=== PATIENT | female | born 1995 | race Caucasian/White ===

== ENCOUNTER 2021-01-05 19:07 | Inpatient (IN) | payer OTHER ==
[~2021-01-05] VITALS: Ht 172.7 cm; Wt 78.1 kg
[2021-01-05] MEDS ORDERED: SODIUM CHLORIDE 0.9% 1,000ML IVBOLUS ONE (19:30)
[2021-01-05] MEDS ORDERED: SODIUM CHLORIDE FLUSH 10ML SYR IVF ONE (19:30)
[2021-01-05] MEDS ORDERED: ACETAMINOPHEN 500 MG TABLET PO ONE (19:30)
[2021-01-05 19:36] LABS: BASOPHILS % (AUTO) 0 % (0-1); EOSINOPHILS % (AUTO) 1 % (1-7); LYMPHOCYTES % (AUTO) 8 % (22-44); MEAN CORPUSCULAR HEMOGLOBIN 32.1 pg (27.0-34.8); MEAN CORPUSCULAR HGB CONC 34.7 g/dL (32.4-35.8); MEAN PLATELET VOLUME 6.9 fL (7.4-10.4); MONOCYTES % (AUTO) 6 % (2-9); NEUTROPHILS % (AUTO) 84 % (42-75); PLATELET COUNT 226 x10^3/uL (130-400); RED BLOOD COUNT 5.01 x10^6/uL (3.82-5.3); RED CELL DISTRIBUTION WIDTH 13.8 % (9.6-15.2)
[2021-01-05 19:50] LABS: ALBUMIN 3.8 g/dL (3.4-5.0); ANION GAP 4 mmol/L (5-15); CALCIUM 8.9 mg/dL (8.5-10.1); CHLORIDE 104 mmol/L (98-107); CREATININE 0.91 mg/dL (0.55-1.02)
[2021-01-05] MEDS ORDERED: CEFTRIAXONE 1,000 MG in DEXTROSE 5% 50 ML IVPB ONE (20:00)
[2021-01-05] MEDS ORDERED: ACETAMINOPHEN 500 MG TABLET ONE (20:08)
--- NOTE | 2021-01-05 20:24 | NUR ---
pt seen at for a uti a few days back, given cipro. told to come in if she spiked a fever. pt nad, placed on monitoring, ua sent to lab at this time. medicated per aug. denies abdominal tenderness, n/v/d, reports flank pain unilaterally on the left and increased frequency. Patient is resting comfortably in bed. Bed in lowest, rails engaged, call light on lap. father and bf at bs. [facility].
[2021-01-05 20:54] LABS: MICROSCOPIC AUTO
--- NOTE | 2021-01-05 21:09 | NUR ---
Patient is resting comfortably in bed. Bed in lowest, rails engaged, call light on lap. NAD, appears comfortable, family at bs, pt chart up for recheck at this time. [facility].
[2021-01-05] MEDS ORDERED: [UNRECOGNIZED DRUG - REMARK] PO (21:46)
[2021-01-05] MEDS ORDERED: SODIUM CHLORIDE FLUSH 10ML SYR IVF PRN (22:00)
--- NOTE | 2021-01-05 22:00 | NUR ---
bedside report to zoë barth, pt care transferred at this time. pt nad, resting on gurney, updated on poc. waiting for pt admit bed.
[2021-01-05] MEDS ORDERED: POLYETHYLENE GLYCOL 17 GM PACKET PO PRN (23:00)
[2021-01-05] MEDS ORDERED: ONDANSETRON 2MG/ML, 2ML IVPush PRN (23:00)
[2021-01-05] MEDS ORDERED: BISACODYL 10 MG SUPP PR PRN (23:00)
[2021-01-05] MEDS ORDERED: POTASSIUM CHLORIDE 20 MEQ TAB.ER.PRT PO ONE (23:00)
[2021-01-05] MEDS ORDERED: DOCUSATE 100 MG CAPSULE PO PRN (23:00)
[2021-01-05 23:23] VITALS: BP 113/68
[2021-01-06 00:18] VITALS: BP 102/63
[2021-01-06] MEDS: SODIUM CHLORIDE 0.9% 1,000 ML IV SCH ×2 (00:25→08:53)
[2021-01-06 05:20] LABS: BASOPHILS % (AUTO) 0 % (0-1); EOSINOPHILS % (AUTO) 1 % (1-7); LYMPHOCYTES % (AUTO) 11 % (22-44); MEAN CORPUSCULAR HEMOGLOBIN 32.1 pg (27.0-34.8); MEAN PLATELET VOLUME 7.2 fL (7.4-10.4); MONOCYTES % (AUTO) 11 % (2-9); NEUTROPHILS % (AUTO) 77 % (42-75); PLATELET COUNT 158 x10^3/uL (130-400); RED BLOOD COUNT 4.15 x10^6/uL (3.82-5.3); RED CELL DISTRIBUTION WIDTH 13.5 % (9.6-15.2)
[2021-01-06 05:29] LABS: CALCIUM 8.1 mg/dL (8.5-10.1); CREATININE 0.67 mg/dL (0.55-1.02)
[2021-01-06 05:39] LABS: ANION GAP 4 mmol/L (5-15); CHLORIDE 110 mmol/L (98-107)
[2021-01-06] MEDS: ACETAMINOPHEN 325 MG TABLET PO PRN ×2 (06:01→10:11)
[2021-01-06 06:45] VITALS: BP 118/72
[2021-01-06] MEDS: CEFTRIAXONE 1,000 MG in DEXTROSE 5% 50 ML IVPB SCH (09:57)
[2021-01-06 14:23] VITALS: BP 103/66
[2021-01-06] MEDS ORDERED: IBUPROFEN 600 MG TABLET PO PRN (18:30)
[2021-01-06 19:16] VITALS: BP 127/76
[2021-01-07 00:33] VITALS: BP 103/63
[2021-01-07 05:36] LABS: BASOPHILS % (AUTO) 0 % (0-1); EOSINOPHILS % (AUTO) 3 % (1-7); LYMPHOCYTES % (AUTO) 27 % (22-44); MEAN CORPUSCULAR HEMOGLOBIN 32.2 pg (27.0-34.8); MEAN PLATELET VOLUME 6.9 fL (7.4-10.4); MONOCYTES % (AUTO) 12 % (2-9); NEUTROPHILS % (AUTO) 58 % (42-75); PLATELET COUNT 165 x10^3/uL (130-400); RED BLOOD COUNT 4.07 x10^6/uL (3.82-5.3); RED CELL DISTRIBUTION WIDTH 13.4 % (9.6-15.2)
[2021-01-07 05:46] LABS: ANION GAP 5 mmol/L (5-15); CALCIUM 8.3 mg/dL (8.5-10.1); CHLORIDE 111 mmol/L (98-107); CREATININE 0.47 mg/dL (0.55-1.02)
[2021-01-07 07:24] VITALS: BP 100/63
[2021-01-07] MEDS: CEFTRIAXONE 1,000 MG in DEXTROSE 5% 50 ML IVPB SCH (11:14)
[2021-01-07] MEDS ORDERED: CIPR250T27 PO (12:10)
== END 2021-01-07 15:50 | disposition home or self-care (01) | DRG 872 ==
LOC: ED 19:37 → EDIP 22:51 → 3N 23:03
PROVIDERS: ADMIT Internal Medicine; ATTEND Hospitalist
DX: A41.9 Sepsis, unspecified organism (principal); N10 Acute pyelonephritis; E87.1 Hypo-osmolality and hyponatremia; F17.200 Nicotine dependence, unspecified, uncomplicated; F12.90 Cannabis use, unspecified, uncomplicated; E87.6 Hypokalemia; Z90.49 Acquired absence of other specified parts of digestive tract; Z90.89 Acquired absence of other organs
CPT/HCPCS: 36415; 76770; 80048; 81001; 82040; 83605; 84703; 85025; 87040; 87086; 96365; G0378; J0696; J7030

== ENCOUNTER 2021-02-03 11:10 | Outpatient (CLI) | payer OTHER ==
[~2021-02-03 11:10] MED LIST: CIPR250T27 PO; [UNRECOGNIZED DRUG - REMARK] PO
[2021-02-03 11:30] LABS: BASOPHILS % (AUTO) 0 % (0-1); EOSINOPHILS % (AUTO) 5 % (1-7); LYMPHOCYTES % (AUTO) 35 % (22-44); MEAN CORPUSCULAR HEMOGLOBIN 31.9 pg (27.0-34.8); MEAN CORPUSCULAR HGB CONC 34.6 g/dL (32.4-35.8); MEAN PLATELET VOLUME 6.6 fL (7.4-10.4); MONOCYTES % (AUTO) 7 % (2-9); NEUTROPHILS % (AUTO) 53 % (42-75); PLATELET COUNT 226 x10^3/uL (130-400); RED CELL DISTRIBUTION WIDTH 13.4 % (9.6-15.2)
[2021-02-03 11:35] LABS: ALANINE AMINOTRANSFERASE 43 U/L (12-78); ALBUMIN 3.5 g/dL (3.4-5.0); ANION GAP 5 mmol/L (5-15); CALCIUM 8.8 mg/dL (8.5-10.1); CHLORIDE 109 mmol/L (98-107)
[2021-02-03 11:38] LABS: ALKALINE PHOSPHATASE 55 U/L (45-117); BILIRUBIN,TOTAL 0.6 mg/dL (0.2-1.0); CREATININE 0.81 mg/dL (0.55-1.02); TOTAL PROTEIN 6.8 g/dL (6.4-8.2)
== END 2021-02-03 23:59 | disposition home or self-care (01) ==
LOC: LAB 11:10
PROVIDERS: ATTEND Obstetrics & Gynecology
DX: I95.1 Orthostatic hypotension (principal)
CPT/HCPCS: 36415; 80053; 85025